=== PATIENT | female | born 1970 | race Caucasian/White ===

== ENCOUNTER 2024-12-28 13:29 | Emergency (ER) | payer BC, SELFPAY ==
[2024-12-28 13:30] VITALS: BP 144/81; PULSE 102; RESP 16; TEMP 36.1; O2SAT 99
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
[2024-12-28 14:59] VITALS: BP 131/75; PULSE 72; RESP 16; TEMP 36.1; O2SAT 99
== END 2024-12-28 15:13 | disposition home or self-care (01) ==
PROVIDERS: Emergency Provider Emergency Medicine; PCP Internal Medicine; Referring Provider Emergency Medicine; Visit Provider Emergency Medicine
DX: S16.1XXA Strain of muscle, fascia and tendon at neck level, initial encounter (principal); S46.911A Strain of unspecified muscle, fascia and tendon at shoulder and upper arm level, right arm, initial encounter; V43.52XA Car driver injured in collision with other type car in traffic accident, initial encounter
CPT/HCPCS: 72040; 73030; 99284